=== PATIENT | male | born 1995 ===

== ENCOUNTER 2017-06-02 13:09 | Emergency (ER) | payer SELFPAY ==
[2017-06-02 13:17] VITALS: BMI 33.3
[2017-06-02 14:11] LABS: BASO # 0.1 K/uL (0.0-0.2); BASO % 0.6 % (0.0-2.0); EOS # 0.4 K/uL (0.0-0.7); EOS % 3.1 % (0.0-4.0); LYMPH # 3.5 K/uL (1.0-4.3); LYMPH % 25.4 % (20.0-40.0); MEAN CELL VOLUME 85.5 fL (80.0-94.0); MEAN CORPUSCULAR HEMOGLOBIN 28.8 pg (27.0-31.0); MEAN CORPUSCULAR HGB CONC 33.6 g/dL (33.0-37.0); MEAN PLATELET VOLUME 8.4 fL (7.2-11.7); MONO # 0.8 K/uL (0.0-0.8); MONO % 5.5 % (0.0-10.0); NEUT % 65.4 % (50.0-75.0); RBC 5.23 Mil/uL (4.40-5.90); RED CELL DISTRIBUTION WIDTH 13.8 % (11.5-14.5); WHITE BLOOD COUNT 13.8 K/uL (4.8-10.8)
[2017-06-02 14:35] LABS: ALBUMIN 4.2 g/dL (3.5-5.0); CALCIUM 9.1 mg/dl (8.6-10.4); GFR AFRICAN-AMERICAN > 60; GFR NON-AFRICAN AMERICAN > 60
[2017-06-02] MEDS ORDERED: Naloxone 0.4 mg/ml Inj (Adult) IV ONE (14:37)
[2017-06-02 14:41] LABS: ALT/SGPT 69 U/L (21-72); AST/SGOT 70 U/L (17-59); BLOOD UREA NITROGEN 11 mg/dL (9-20)
[2017-06-02 14:50] LABS: ACETAMINOPHEN < 10.0 ug/mL (10.0-30.0); SALICYLATE < 1.0 mg/dL 1
[2017-06-02] MEDS ORDERED: Naloxone 0.4 mg/ml Inj (Adult) ONE ×3 (14:50→18:58)
[2017-06-02] MEDS ORDERED: Naloxone 0.4 mg/ml Inj (Adult) IV STA (16:24)
--- NOTE | 2017-06-02 16:26 | C.PDOC ---
History Of Present Illness 21 year old male is brought to the ED by ambulance for evaluation after a heroin overdose at this mother's house earlier today. Patient admits to using around 50 bags of heroin intravenously. As per EMS, patient was found to be in respiratory depression in the bathroom. He was given Narcan with improvement. Patient denies suicidal/homicidal ideation and has no other complaints at this time. Time Seen by Provider: 06/02/17 13:36 Chief Complaint (Nursing): Substance Abuse History Per: Patient, EMS History/Exam Limitations: no limitations Onset/Duration Of Symptoms: Hrs Current Symptoms Are (Timing): Still Present Modifying Factor(s): Narcotics (heroin ) Associated Symptoms: denies: Suicidal Thoughts, Suicidal Plan Involuntary Hold By: None Recent travel outside of the [place]: No Additional History Per: Patient Past Medical History Reviewed: Historical Data, Nursing Documentation, Vital Signs Vital Signs: Last Vital Signs Temp 97.9 F 06/02/17 20:49 Pulse 82 06/02/17 20:49 Resp 18 06/02/17 20:49 BP 111/61 06/02/17 20:49 Pulse Ox 99 06/02/17 23:08 - Medical History PMH: No Chronic Diseases Surgical History: No Surg Hx Family History: States: Unknown Family Hx - Social History Hx Alcohol Use: No Hx Substance Use: Yes - Immunization History Hx Tetanus Toxoid Vaccination: No Hx Influenza Vaccination: No Hx Pneumococcal Vaccination: No Review Of Systems Psych: Positive for: Other (heroin overdose ) Physical Exam - Physical Exam Appears: Non-toxic, No Acute Distress, Other (somnolent ) Skin: Normal Color, Warm, Dry Head: Atraumatic, Normacephalic Eye(s): bilateral: Other (pinpoint pupils ) Oral Mucosa: Moist Lips: Other (granulated, gaping, 1cm laceration to right upper lip (from a fall patient sustained two days ago). No active bleeding. ) Neck: Supple Chest: Symmetrical, No Deformity, No Tenderness Cardiovascular: Rhythm Regular, No Murmur Respiratory: Normal Breath Sounds, No Rales, No Rhonchi, No Wheezing Extremity: Normal ROM, Capillary Refill (less than 2 seconds ), Other (track drake noted to dorsal aspects of bilateral hands. no abscess ) Neurological/Psych: Oriented x3, Normal Speech, Normal Cognition ED Course And Treatment - Laboratory Results Result Diagrams: 06/02/17 14:06 06/02/17 14:06 O2 Sat by Pulse Oximetry: 99 (on RA) Pulse Ox Interpretation: Normal Progress Note: Bloodwork, UA, EKG ordered and reviewed. Narcan IV administered x 3 rounds. approx 2100 pt finally awake and aware- fed and ambulated well Reevaluation Time: 21:20 Reassessment Condition: Improved Medical Decision Making Medical Decision Making: persistent heroine abuse no heroine detox available here today referred for opt f/u and detox. R upper lip lac is chronic and too old to close for cosmetic effect. Disposition Doctor Will See Patient In The: Office Counseled Patient/Family Regarding: Studies Performed, Diagnosis - Disposition Referrals: Alcoholics Anonymous [Outside] [facility] [Outside] [facility] [Outside] [facility] [Outside] [facility] [Outside] Disposition: HOME/ ROUTINE Disposition Time: 21:20 Condition: GOOD Additional Instructions: sigue con psychiatria- llama para charlie desponibilidad de cama de Detox [place] man[place] para que te ponene en la Lista de Crisis en [facility]. Keep bottle of Narcan [place] in your pocket so if/when you overdose again, your friends/family may take it out of your pocket and spray it up your nose to save your life from respiratory arrest. Give your family/friends a bottle of Narcan to keep in THEIR pocket to help you as above. Prescriptions: Naloxone HCl [Narcan] 4 mg NS ONCE PRN #1 spray PRN Reason: overdose Forms: [facility] ([place]an) Print Language: UKRAINIAN - Clinical Impression Clinical Impression: Accidental heroin overdose - Scribe Statement The provider has reviewed the documentation as recorded by the Scribe (Kassy Cardona) Provider Attestation: All medical record entries made by the Scribe were at my direction and personally dictated by me. I have reviewed the chart and agree that the record accurately reflects my personal performance of the history, physical exam, medical decision making, and the department course for this patient. I have also personally directed, reviewed, and agree with the discharge instructions and disposition.
[2017-06-02] MEDS ORDERED: Naloxone 0.4 mg/ml Inj (Adult) IVP ONE (18:54)
[2017-06-02 20:49] VITALS: BP 111/61; PULSE 82; RESP 18; TEMP 97.9
[2017-06-02 21:21] VITALS: O2SAT 99
--- NOTE | 2017-06-05 10:17 | CARD ---
APPROVED REPORT EKG Measurement Heart [id number] <Conclusion> Accelerated Junctional rhythm with premature supraventricular complexes Abnormal ECG
== END 2017-06-02 21:37 | disposition home or self-care (01) ==
LOC: C.ER 13:09
DX: T40.1X1A Poisoning by heroin, accidental (unintentional), initial encounter (principal)
CPT/HCPCS: 80053; 85025; 93005; 96374; 96376; 99285; G0480; J2310